=== PATIENT | male | born 2000 | race African-American/Black ===

== ENCOUNTER 2022-07-11 12:50 | Emergency (ER) | payer OTHER ==
[2022-07-11 13:05] VITALS: BP 121/65; PULSE 71; RESP 18; TEMP 97.9; BMI 20.1
== END 2022-07-11 14:41 | disposition home or self-care (01) ==
LOC: JER 12:50 → JERFT 12:50
DX: S60.552A Superficial foreign body of left hand, initial encounter (principal); W34.010A Accidental discharge of airgun, initial encounter
CPT/HCPCS: 73130-TC-LT-FY; 99283-25